=== PATIENT | female | born 1965 | race Caucasian/White ===

== ENCOUNTER → 2018-12-06 | Outpatient (CLI) | payer BC ==
[~2018-12-06] MED LIST: CHOL200021 PO; LEVO75TA68 PO; LOR5/325 PO
--- NOTE | 2018-12-11 13:48 | RADIOLOGY IMAGING REPORT ---
FACILITY: [facility] PATIENT NAME: IGNACIO TY : [id number] MR: [id number]: [id number] EXAM DATE: [id number] ORDERING PHYSICIAN: MIGUEL ÁNGEL ODOM TECHNOLOGIST: Ashley Gee PROCEDURE: BILATERAL DIGITAL SCREENING MAMMOGRAM WITH CAD ASSISTED INTERPRETATION & 3D TOMOSYNTHESIS. REASON FOR STUDY: Screening. COMPARISON: 05/13/2015. VIEWS OBTAINED: 2D & 3D full field CC & MLO projections. BREAST DENSITY: The breast tissue is heterogeneously dense. MAMMOGRAM FINDINGS: There is no suspicious mass, calcification, or architectural distortion. IMPRESSION: BIRADS 1: Negative. DIAGNOSTIC CATEGORY 1--NEGATIVE. RECOMMENDATIONS: ROUTINE MAMMOGRAM AND CLINICAL EVALUATION IN 1YR. Dictated by: Avelino Francis M.D. on 12/11/2018 at 10:31 Transcribed by: BENITA on 12/11/2018 at 10:48 Approved by: Avelino Francis M.D. on 12/11/2018 at 13:44 [facility]
== END ==
LOC: MAMO 02:27
PROVIDERS: ATTEND Nurse Practitioner Family
DX: Z12.31 Encounter for screening mammogram for malignant neoplasm of breast (principal)
CPT/HCPCS: 77063; 77067

== ENCOUNTER 2019-01-01 02:04 | Day surgery (SDC) | payer BC ==
[~2019-01-01] VITALS: Ht 167.6 cm; Wt 90.7 kg
[2019-01-01] MEDS ORDERED: PROPOFOL EMUL(*) 10MG/ML 20 ML 40 ML ONE (06:58)
[2019-01-01 07:37] VITALS: BP 123/84
[2019-01-01] MEDS ORDERED: NORMOSOL R SOLN(*) 1000 ML BAG 1,000 ML IV PRN (07:40)
[2019-01-01] MEDS ORDERED: LIDOCAINE/SOD BICARB 8.4% SYR ID ONE (07:40)
[2019-01-01 09:21] VITALS: BP 92/58
[2019-01-01 09:28] VITALS: BP 99/66
--- NOTE | 2019-01-01 09:33 | Short(Outpt) Discharge Summary ---
Discharge Summary Reason for Hosp/Final Diag: (1) Colon cancer screening Status: Chronic Hospital Course & Plan: Colonoscopy with polypectomy x1 completed without problems. Departure Discharge to: Home, Self Care Discharge Instructions Home Meds Reported Medications Levothyroxine Sodium (SYNTHROID) 75 Mcg Tablet, 88 MCG PO QDAY 06/25/15 Diet: Regular Activity: As Tolerated Special Instructions: Your colonoscopy was completed without problems and your prep was excellent (Good Job!!). I removed a single polyp from your colon and it was sent to pathology. My office will call you in the next week or two to let you know what the polyp is and when your next colonoscopy should be (either 5 or 10 years) depending on pathology results. RODRIGO FOUNTAIN MD Jan 01, 2019 09:33
--- NOTE | 2019-01-01 09:35 | NUR ---
Patient resting comfortably. wakes easy to all stimuli. will continue to monitor and assess.
--- NOTE | 2019-01-01 09:45 | NUR ---
Patient supplemental oxygen removed. patient tolerating well at 97%. pulse 71 bpm and respirations at 18. will continue to monitor and assess.
[2019-01-01 09:56] VITALS: BP 112/83
[2019-01-01 10:00] VITALS: BP 109/80
--- NOTE | 2019-01-01 10:05 | NUR ---
Orthostatic vitals complete. see vital signs for report. patient tolerated well.
--- NOTE | 2019-01-01 10:25 | NUR ---
Patient up to bathroom, able to void bladder. no dizziness or light headedness stated by patient.
[2019-01-01 10:33] VITALS: BP 134/86
--- NOTE | 2019-01-01 10:45 | NUR ---
patient walked out to admitting.
== END 2019-01-01 10:40 | disposition home or self-care (01) ==
LOC: OR 02:04
PROVIDERS: ATTEND Surgery
DX: Z12.11 Encounter for screening for malignant neoplasm of colon (principal); D12.3 Benign neoplasm of transverse colon
CPT/HCPCS: 00811; 45385; 88305; J2704